=== PATIENT | female | born 1955 | race Hispanic/Latino ===

== ENCOUNTER → 2024-03-15 | Outpatient (CLI) | payer MEDICARE ==
--- NOTE | 2024-03-15 09:51 | HMCIMG ---
US ABDOMINAL COMPLETE REASON: polycystic kidney COMPARISON: None FINDINGS: There is normal sonographic appearance of the liver. There are scattered liver cysts, largest on the left is 2.4 cm, largest on the right 3.8 x 5.1 cm. There are no solid liver masses. The liver is not enlarged.There is a normal-appearing gallbladder. Right kidney appears completely replaced by cysts, consistent with polycystic renal disease. There is a right lower quadrant transplant kidney which appears unremarkable. The [place] left kidney has been removed. Spleen and common duct appear normal. Aorta and inferior vena cava appear normal. Pancreas is only partially visualized, the visualized portions appear normal. IMPRESSION: 1. Multiple cysts present throughout the liver. 2. Right kidney is replaced by cysts, left kidney is absent. 3. Normal-appearing transplant kidney in the right lower quadrant. 4. Remainder of the abdomen ultrasound is unremarkable.
== END | disposition home or self-care (01) ==
LOC: RAH 07:34
PROVIDERS: ATTEND Internal Medicine Nephrology
DX: N28.1 Cyst of kidney, acquired (principal)
CPT/HCPCS: 76700